=== PATIENT | male | born 1960 | race Caucasian/White ===

== ENCOUNTER 2016-10-31 10:13 | Outpatient (CLI) | payer BC ==
[~2016-10-31] VITALS: Ht 175.3 cm; Wt 72.6 kg
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
[2016-10-31] MEDS ORDERED: BUP/EPI 0.5% 1:200,000 (SENSORCAINE) 30 ML VIAL ONE (10:27)
[2016-10-31] MEDS ORDERED: LIDOCAINE 1% INJ 20 ML (XYLOCAINE) VIAL ONE (10:27)
[2016-10-31] MEDS ORDERED: TRIAMCINOLONE ACET (KENALOG-40) 40 MG/ML 1 ML VIAL ONE (10:27)
[2016-10-31 10:40] VITALS: BP 143/95
[2016-10-31 11:02] VITALS: BP 132/82
--- NOTE | 2016-10-31 14:12 | Pain Medicine-Procedure ---
Procedure Pre-Op/Post-Op Diagnosis Diagnosis: Phantom limb syndrome with pain Indications for Operation Phantom limb pain Attending Surgeon Berenice Procedure Date of Service: Oct 31, 2016 PROCEDURE: Right L3 Sympathetic Nerve Block under fluoroscopic guidance PROCEDURE: After obtaining an informed consent from the patient, the patient's chart was reviewed. The patient was brought to the procedure room and placed in a prone position. A time out was performed. The L3 vertebral level was identified on the right side in the oblique view and then 2 mL of 1% Lidocaine was used to anesthetize the skin. A 22 gauge 5 inch spinal needle was inserted under fluoroscopic guidance lateral to the transverse process of L3 on the right side until the needle was positioned in front of the L3 vertebrae. After needle aspiration, 3 ml of contrast dye was injected and showed good spread of the contrast material in the region of the sympathetic chain on the right side at L3. After negative aspiration (negative for CSF, blood and paraesthesia), 80 mg of Kenalog was injected followed by 8 mL of 0.5 percent Marcaine with epinephrine with repeated negative aspiration throughout the injection. No increase in heart rate was noted and the patient denied signs of local anesthetic toxicity The patient tolerated the procedure well. The needle was flushed with preservative free 1% lidocaine and removed, and a Band-Aide was applied. The patient tolerated the procedure well and was taken to the recovery area in stable condition. Patient was discharged to home in stable condition with no new neurologic deficits. Complications None SWAPNA GIBSON MD Oct 31, 2016 2:12 pm
== END 2016-10-31 11:04 ==
LOC: CARD 10:13
PROVIDERS: ATTEND Pain Medicine Pain Medicine
DX: G54.6 Phantom limb syndrome with pain (principal); Z79.899 Other long term (current) drug therapy; Z89.611 Acquired absence of right leg above knee
CPT/HCPCS: 64520

== ENCOUNTER 2016-11-28 08:31 | Outpatient (CLI) | payer BC ==
[~2016-11-28] VITALS: Ht 175.3 cm; Wt 70.3 kg
--- OUTSIDE RECORDS SUMMARY | 2016-11-28 08:34 | XMS REPORT | Continuity of Care Document ---
Author Author [facility] Organization [facility] Address Unknown Phone Unavailable Care Team Providers Care Physician Credentialing Specialist Name Role Phone Self, Referral PCP Unavailable Source Comments Some departments are not documenting in the electronic medical record. If you do not see the information that you expected, contact Release of Information in the Health Information Management department at [phone] for further assistance in locating additional records.[facility] Active Allergies and Adverse Reactions No Known [...]
[2016-11-28] MEDS ORDERED: BUPIVACAINE 0.25% 30 ML (SENSORCAINE) VIAL ONE (08:44)
[2016-11-28] MEDS ORDERED: LIDOCAINE 1% INJ 20 ML (XYLOCAINE) VIAL ONE (08:44)
[2016-11-28] MEDS ORDERED: TRIAMCINOLONE ACET (KENALOG-40) 40 MG/ML 1 ML VIAL ONE (08:44)
[2016-11-28 08:51] VITALS: BP 160/85
[2016-11-28 09:09] VITALS: BP 154/90
--- NOTE | 2016-11-28 09:15 | Pain Medicine-Procedure ---
Procedure Pre-Op/Post-Op Diagnosis Diagnosis: Phantom limb syndrome with pain Indications for Operation Phantom limb syndrome with pain Attending Surgeon Berenice Procedure Date of Service: Nov 28, 2016 PROCEDURE: Right L3 lumbar Sympathetic Nerve Block under fluoroscopic guidance PROCEDURE: After obtaining an informed consent from the patient, the patient's chart was reviewed. The patient was brought to the procedure room and placed in a prone position. A time out was performed. The L3 vertebral level was identified on the right side in the oblique view and then 2 mL of 1% Lidocaine was used to anesthetize the skin. A 22 gauge 5 inch spinal needle was inserted under fluoroscopic guidance lateral to the transverse process of L3 on the right side until the needle was positioned in front of the L3 vertebrae. After needle aspiration, 3 ml of contrast dye was injected and showed good spread of the contrast material in the region of the sympathetic chain on the right side at L3. After negative aspiration (negative for CSF, blood and paraesthesia), 80 mg of Kenalog was injected followed by 8 mL of 0.25 percent bupivacaine with repeated negative aspiration throughout the injection. patient denied signs of local anesthetic toxicity The patient tolerated the procedure well. The needle was flushed with preservative free 1% lidocaine and removed, and a Band- Aide was applied. T he patient tolerated the procedure well and was taken to the recovery area in stable condition. Patient was discharged to home in stable condition with no new neurologic deficits. Complications None SWAPNA GIBSON MD Nov 28, 2016 9:15 am
== END 2016-11-28 09:10 | disposition home or self-care (01) ==
LOC: CARD 08:31
PROVIDERS: ATTEND Pain Medicine Pain Medicine
DX: G54.6 Phantom limb syndrome with pain (principal); Z79.899 Other long term (current) drug therapy; Z89.611 Acquired absence of right leg above knee
CPT/HCPCS: 64520

== ENCOUNTER 2017-02-06 08:20 | Outpatient (CLI) | payer BC ==
[~2017-02-06] VITALS: Ht 175.3 cm; Wt 70.3 kg
[2017-02-06] MEDS ORDERED: BUP/EPI 0.5% 1:200,000 (SENSORCAINE) 30 ML VIAL ONE (08:26)
[2017-02-06] MEDS ORDERED: TRIAMCINOLONE ACET (KENALOG-40) 40 MG/ML 1 ML VIAL ONE (08:26)
[2017-02-06] MEDS ORDERED: BUPIVACAINE 0.25% 30 ML (SENSORCAINE) VIAL ONE (08:27)
[2017-02-06] MEDS ORDERED: LIDOCAINE 1% INJ 20 ML (XYLOCAINE) VIAL ONE (08:27)
[2017-02-06 08:37] VITALS: BP 136/83
[2017-02-06 09:15] VITALS: BP 134/87
--- NOTE | 2017-02-06 12:36 | Pain Medicine-Procedure ---
Procedure Pre-Op/Post-Op Diagnosis Diagnosis: Phantom limb syndrome with pain Indications for Operation Right leg pain Attending Surgeon Berenice Procedure Date of Service: Feb 06, 2017 PROCEDURE: Right L3 lumbar Sympathetic Nerve Block under fluoroscopic guidance PROCEDURE: After obtaining an informed consent from the patient, the patient's chart was reviewed. The patient was brought to the procedure room and placed in a prone position. A time out was performed. The L3 vertebral level was identified on the right side in the oblique view and then 2 mL of 1% Lidocaine was used to anesthetize the skin. A 22 gauge 5 inch spinal needle was inserted under fluoroscopic guidance lateral to the transverse process of L3 on the right side until the needle was positioned in front of the L3 vertebrae. After needle aspiration, 3 ml of contrast dye was injected and showed good spread of the contrast material in the region of the sympathetic chain on the right side at L3. After negative aspiration (negative for CSF, blood and paraesthesia), 80 mg of Kenalog was injected followed by 8 mL of 0.35 percent bupivacaine with epinephrine with repeated negative aspiration throughout the injection. patient denied signs of local anesthetic toxicity The patient tolerated the procedure well. The needle was flushed with preservative free 1% lidocaine and removed, and a Band-Aide was applied. T he patient tolerated the procedure well and was taken to the recovery area in stable condition. Patient was discharged to home in stable condition with no new neurologic deficits. Complications None SWAPNA GIBSON MD Feb 06, 2017 12:36 pm
== END 2017-02-06 09:17 ==
LOC: CARD 08:20
PROVIDERS: ATTEND Pain Medicine Pain Medicine
DX: G54.6 Phantom limb syndrome with pain (principal); Z79.899 Other long term (current) drug therapy
CPT/HCPCS: 64520